=== PATIENT | female | born 1990 | race Caucasian/White ===

== ENCOUNTER 2017-11-22 10:10 | Emergency (ER) | payer BC, MEDICAID, OTHER ==
[~2017-11-22] VITALS: Ht 152.4 cm; Wt 42.6 kg
[2017-11-22] MEDS ORDERED: dexamethasone sod phosphate 10mg/ml inj PO STA (11:35)
[2017-11-22] MEDS ORDERED: HYDROcodone/acetaminophen 5mg/325mg tablet PO ONE (11:35)
[2017-11-22] MEDS ORDERED: HYDR-569 PO (11:51)
[2017-11-22] MEDS ORDERED: ALBU18HF2 INH (11:57)
[2017-11-22 12:27] VITALS: BP 116/60
== END 2017-11-22 12:29 | disposition home or self-care (01) ==
LOC: ER 10:10
DX: R07.81 Pleurodynia (principal); R05 Cough; J02.9 Acute pharyngitis, unspecified; Z79.899 Other long term (current) drug therapy
CPT/HCPCS: 71046; 99284; A6449; J1100

== ENCOUNTER 2023-02-07 13:40 | Emergency (ER) | payer MEDICAID, OTHER ==
[~2023-02-07] VITALS: Ht 154.9 cm; Wt 50.0 kg
[~2023-02-07 13:40] MED LIST: ALBU18HF2 INH; HYDR-4383 PO
[2023-02-07 14:01] VITALS: BP 102/67
--- NOTE | 2023-02-07 14:19 | NUR ---
c-collar placed by triage nurse.
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
[2023-02-07] MEDS ORDERED: ondansetron 4mg rapidly disintigrating tab PO ONE (14:40)
[2023-02-07 15:02] LABS: URINE HCG NEGATIVE (NEG)
[2023-02-07] MEDS ORDERED: CYCL-1 PO (16:03)
[2023-02-07] MEDS ORDERED: cyclobenzaprine 10mg tablet PO ONE (16:05)
[2023-02-07] MEDS ORDERED: ibuprofen 200mg tablet PO ONE (16:05)
== END 2023-02-07 16:27 | disposition home or self-care (01) ==
LOC: ER 13:40
DX: S13.4XXA Sprain of ligaments of cervical spine, initial encounter (principal); S06.0X0A Concussion without loss of consciousness, initial encounter; Z91.041 Radiographic dye allergy status; V89.2XXA Person injured in unspecified motor-vehicle accident, traffic, initial encounter; Y93.89 Activity, other specified; Y92.89 Other specified places as the place of occurrence of the external cause; Y99.8 Other external cause status
CPT/HCPCS: 72125; 81025; 99284; L0172